=== PATIENT | female | born 1970 | race Two or more races ===

== ENCOUNTER 2019-12-22 15:09 | Outpatient (CLI) | payer OTHER | END 2019-12-22 15:43 | disposition home or self-care (01) | LOC: MAMO-SONO 15:09 → RAD 15:09 | DX: N93.8 Other specified abnormal uterine and vaginal bleeding (principal); N83.291 Other ovarian cyst, right side; N83.292 Other ovarian cyst, left side; I88.9 Nonspecific lymphadenitis, unspecified; N63.20 Unspecified lump in the left breast, unspecified quadrant; N63.10 Unspecified lump in the right breast, unspecified quadrant ==